=== PATIENT | male | born 1935 | race Caucasian/White ===

== ENCOUNTER 2016-08-26 05:34 | Inpatient (IN) | payer BC ==
--- NOTE | ~2016-08-26 | OP ---
Record Of Operation [facility] [address] [place]. [address] NAME: BEENA NOVA : 34 STATUS : ADM IN PAT#: [id number] AGE: 80 ADM/REG DATE : 08/26/16 MR#: [id number] REPORT SERV DATE: 08/26/16 DICTATED BY: BALDEMAR ORTIZ DATE: 08/26/16 REPORT STATUS : Draft TRANSCRIBED BY: MODL DATE: 08/26/16 DATE OF PROCEDURE: 08/26/2016 CAREER TRANSITION SPECIALIST: Jl Salgado. ANESTHESIOLOGIST: Dr. Hieu Wei. PREOPERATIVE DIAGNOSES: 1. Three-vessel coronary artery disease. 2. Unstable angina. 3. Paroxysmal atrial fibrillation. 4. Bradycardia. 5. Hypertension. 6. BPH. 7. Carotid stenosis. 8. Chronic kidney disease, 3. POSTOPERATIVE DIAGNOSES: 1. Three-vessel coronary artery disease. 2. Unstable angina. 3. Paroxysmal atrial fibrillation. 4. Bradycardia. 5. Hypertension. 6. BPH. 7. Carotid stenosis. 8. Chronic kidney disease, 3. OPERATION PROCEDURE PERFORMED: 1. Median sternotomy. 2. Extracorporeal circulation. 3. Elective coronary artery bypass grafting x4, left internal mammary artery, left anterior descending, reverse greater saphenous vein graft to diagonal 1, reverse greater saphenous vein graft to obtuse marginal #1, reverse greater saphenous vein graft to posterior descending artery. 4. Left atrial appendage clip, 40 mm atrial clip. 5. Transesophageal echocardiogram. 6. Endoscopic vein harvest, right leg. COMPLICATIONS: None. TUBES AND DRAINS: A 24-Kosovan Titi to the left pleural space, 32 straight mediastinal atrial and ventricular wires. Transesophageal echo showed normal EF, trace MR, no AI, no , no clot in the left atrial appendage. Post bypass, it was preserved function, no change in the MR. Record Of Operation [facility] [address] [place]. [address] NAME: BEENA NOVA : 34 STATUS : ADM IN PAT#: [id number] AGE: 80 ADM/REG DATE : 08/26/16 MR#: [id number] REPORT SERV DATE: 08/26/16 DICTATED BY: BALDEMAR ORTIZ DATE: 08/26/16 REPORT STATUS : Draft TRANSCRIBED BY: MODL DATE: 08/26/16 POSTOPERATIVE CONDITION: Stable to CVICU. DETAILS OF CARDIOPULMONARY BYPASS: The cross-clamp was on 84 minutes, total pump was 100 minutes. DETAILS OF CARDIOPULMONARY BYPASS GRAFTIN. Grafts #1, left internal mammary artery, left anterior descending was 1.5 mm diffusely diseased target. 2. Graft was a reverse greater saphenous vein graft to first diagonal. This was 1.25 mm target. This was small diffusely diseased artery. 3. Reverse greater saphenous vein graft to obtuse marginal #1 is a 1.5 mm target. 4. Graft was reverse greater saphenous vein graft to posterior descending artery. This was a 1.75 mm target. DETAILS OF THE LEFT ATRIAL APPENDAGE CLIP: A 40 mm atrial clip was applied to the base of the left atrial appendage after sizing with the atrial clip sizing device. OVERALL FINDINGS: Good targets, good ventricle, good conduit. All grafts had excellent Doppler flow, both pre and post protamine. INDICATIONS FOR PROCEDURE: Mr. Nova is an 80-year-old gentleman with a history of hypertension; BPH; carotid stenosis; chronic kidney disease, stage 3; three-vessel coronary disease; unstable angina; paroxysmal atrial fibrillation; and bradycardia, who had been having chest tightness and shortness of breath and ultimately underwent coronary catheterization, which revealed severe three-vessel coronary artery disease. He was referred for coronary artery bypass grafting. The risks, benefits, alternatives, including, but not limited to, bleeding, infection, stroke, , heart attack, need for future operations, kidney failure, and lung failure were discussed with him. All questions were answered. STS mortality score is 2.5%, morbidity-mortality score 15% were discussed with the patient. It was decided to only perform an atrial clip instead of performing a Maze given his history of severe bradycardia. He was taken to the operating room. DETAILS OF THE PROCEDURE: The patient was brought to the operating room and placed supine on the operating room table. After satisfactory induction of general endotracheal anesthesia, he was prepped and draped in the usual sterile fashion. Working simultaneously, endoscopic vein harvest was performed from the left leg while a median sternotomy was performed. Skin subcutaneous tissues were divided. Clavipectoral fascia was divided. Sternum was divided in the midline. Sternal retractor was placed. Thymic tissue was divided in the midline. Pericardium was opened in the midline and T'd at the diaphragm. A Rultract retractor was then placed and the internal mammary artery was harvested in a pedicle fashion. It was takeoff under the subclavian vein the bifurcation of the diaphragm. Systemic heparinization was achieved. After 3 minutes, the pedicle was clipped and divided. The bifurcation of the diaphragm was infiltrated with papaverine. The Rultract retractor was removed and the sternal retractor was placed. Pericardial well was created. Ascending aortic cannulation was achieved through pursestring at the base of the innominate artery. Dual stage venous cannula was placed through pursestring in the right atrial appendage. Antegrade root vent cardioplegia tack was placed, and the conduit was brought up and prepared for bypass. The Record Of Operation [facility] [address] [facility] [place]. [address] NAME: BEENA NOVA : 34 STATUS : ADM IN [facility]#: [id number] AGE: 80 ADM/REG DATE : 08/26/16 MR#: [id number] REPORT SERV DATE: 08/26/16 DICTATED BY: BALDEMAR ORTIZ DATE: 08/26/16 REPORT STATUS : Draft TRANSCRIBED BY: SHASTA DATE: 08/26/16 internal mammary artery was brought through a wide V in the pericardium. After documentation of an adequate ACT, the cardiopulmonary bypass was initiated. The targets were inspected and were felt to be appropriate for bypass. Left atrial appendage was sized to a 40 mm clip. The cross-clamp was then brought up and the heart was arrested with cold antegrade cardioplegia switching intermittent aliquots of cold antegrade cardioplegia every 15 to 20 minutes throughout the remainder of the cross clamp. The grafts were then performed as mentioned in the findings. All distal anastomoses were probed performed with 8 0 Surgipro. The proximals for the vein grafts were performed after sizing the vein, cutting to length, spatulating. A proximal aortotomy was performed with 11 blade and enlarged with a 5.2 mm punch. All proximals were performed with 6-0 Prolene. Vein markers were placed. Internal mammary artery was brought down through a wide V in the pericardium. Then anastomosed to the anterior surface of the LAD using 8-0 Surgipro. After completion of the anastomosis, there was excellent flow in the graft in the artery distal to the anastomosis and proximal to the anastomosis. The pedicle was attached to the heart in two places using 6-0 Prolene. The left atrial appendage clip was then performed using the 40 mm atrial clip at the base of the appendage. The cross-clamp was then removed. Atrial and ventricular pacing wires were placed. The patient was able to be weaned from cardiopulmonary bypass without incident on no inotropic support. Protamine was administered. The patient was decannulated. All cannulation sites were oversewn with 4-0 Prolene. Hemostasis was obtained. The pericardium was loosely reapproximated over the ascending aorta and the right ventricle using 2-0 silk. The 32-Kosovan chest tube was placed beneath the sternum and 24- Kosovan Titi was placed in the left pleural space, both these were exteriorized and secured. The sternum was then reapproximated using stainless steel sternal wires, some of these were double wires. Clavipectoral fascia was reapproximated using running #1 StrataFix. The subcutaneous tissues were closed using running #1 StrataFix. The skin was closed using 2-0 Quill. The dry sterile dressings were placed and the patient was transferred to CVICU in critical, stable condition. [facility] Baldemar Ortiz MD / [id number] CC: Baldemar Ortiz MD
[~2016-08-26 05:34] MED LIST: APIXABAN PO; ASAB PO; BACDS PO; CHLO TUSS PO; COREG3 PO; DENIES HOME MEDS; ELIQUIS 2.5 MG2.5 MG PO; ELIQUIS 5 MG TAB5 MG PO; LIPITOR20 PO; LIPITOR40 PO; LOP25 PO; MULTIPLE VIT PO; NORV25 PO; PCET PO; SINGULAIR1 PO
[2016-08-26 12:53] LABS: BE (BASE EXCESS) 0.4 MEQ/L (0 +/- 2.5); CARBOXYHEMOGLOBIN 0.3 % (0-3); HCO3 (ACTUAL BICARBONATE) 23.6 MEQ/L (23-27); HEMOBLOGIN CONTENT 12.7 G/DL (14-18); INSTRUMENT SERIAL # 11843; METHEMOGLOBIN 0.5 % (0-3); MODE SIMV; O2 CONTENT 18.4 VOL% (18-24); OPERATOR ID 19104; PCO2 (CO2 TENSION) 34 MMHG (35-45); PO2 (O2 TENSION) 364 MMHG (79-93); SAMPLE Arterial; TIDAL VOLUME 700 ML; pH 7.47 (7.37-7.43)
[2016-08-26 13:13] LABS: HEMOGLOBIN 12.3 g/dL (13.6-17.8)
[2016-08-26 13:14] LABS: HEMATOCRIT 34.9 % (40.0-51.0); PLATELET COUNT 107 10/3/uL (150-400)
[2016-08-26 13:20] LABS: INTERNATIONAL NORMAL RATI 1.6 UNITS (-)
[2016-08-26 13:21] LABS: FIBRINOGEN 245 MG/DL (230-462); PARTIAL THROMBO TIME 33.9 SEC (22.5-37.2); PROTIME (NOT ORD) 18.9 SEC (12.0-14.5)
[2016-08-26 13:28] LABS: BUN (BLOOD UREA NITROGEN) 19 MG/DL (6-23); CALCIUM, SERUM 8.8 MG/DL (8.5-10.4); CHLORIDE, SERUM 110 MMOL/L (96-112); CO2 (CARBON DIOXIDE) 24 MMOL/L (24-34); CREATININE 1.31 MG/DL (0.70-1.30); GFR AFRICAN AMERICAN 59 ML/MIN (>=60); GFR NON AFRICAN AMERICAN 51 ML/MIN (>=60); POTASSIUM, SERUM 3.7 MMOL/L (3.5-5.3); SODIUM, SERUM 144 MMOL/L (135-148)
[2016-08-26 13:30] LABS: GLUCOSE, SERUM 77 MG/DL (60-99)
[2016-08-26 17:49] LABS: BE (BASE EXCESS) -2.6 MEQ/L (0 +/- 2.5); CARBOXYHEMOGLOBIN 0.3 % (0-3); HCO3 (ACTUAL BICARBONATE) 22.6 MEQ/L (23-27); HEMOBLOGIN CONTENT 12.1 G/DL (14-18); INSTRUMENT SERIAL # 11843; METHEMOGLOBIN 0.3 % (0-3); O2 CONTENT 16.7 VOL% (18-24); PCO2 (CO2 TENSION) 40 MMHG (35-45); PO2 (O2 TENSION) 112 MMHG (79-93); pH 7.37 (7.37-7.43)
[2016-08-26 17:50] LABS: DEVICE NC; OPERATOR ID 13715; SAMPLE Arterial
[2016-08-26 20:09] LABS: HEMATOCRIT 31.8 % (40.0-51.0); HEMOGLOBIN 10.9 g/dL (13.6-17.8)
[2016-08-26 20:18] LABS: POTASSIUM, SERUM 4.7 MMOL/L (3.5-5.3)
[2016-08-27 03:40] LABS: BASOPHILS 0 %; EOSINOPHILS 0 %; HEMATOCRIT 29.8 % (40.0-51.0); HEMOGLOBIN 10.2 g/dL (13.6-17.8); IMMATURE GRANULOCYTES 0.4 %; IMMATURE GRANULOCYTES ABSOLUTE 0.05 10/3/uL (0.0-0.11); LYMPHOCYTES 4.1 %; LYMPHOCYTES ABSOLUTE 0.54 10/3/uL (0.67-4.30); MANUAL DIFF NO %; MEAN CORPUS HGB CONC 34.2 g/dL (32.0-36.0); MEAN CORPUSCULAR HEMOGLOB 30.8 pg (26.0-34.0); MEAN PLATELET VOLUME 9.8 fL (9.2-13.0); MONOCYTES 4.8 %; MONOCYTES ABSOLUTE 0.63 10/3/uL (0.21-1.20); NEUTROPHILS 90.7 %; NEUTROPHILS ABSOLUTE 11.96 10/3/uL (2.02-8.40); PLATELET COUNT 107 10/3/uL (150-400); RBC DISTRIBUTION WIDTH 13.7 % (12.0-16.0); RED CELL COUNT 3.31 10/6/uL (4.7-6.1); WHITE BLOOD CELLS 13.2 10/3/uL (4.5-10.5)
[2016-08-27 03:45] LABS: INTERNATIONAL NORMAL RATI 1.4 UNITS (-); PROTIME (NOT ORD) 16.7 SEC (12.0-14.5)
[2016-08-27 04:03] LABS: CALCIUM, SERUM 7.9 MG/DL (8.5-10.4); CHLORIDE, SERUM 113 MMOL/L (96-112); CO2 (CARBON DIOXIDE) 24 MMOL/L (24-34); CREATININE 1.11 MG/DL (0.70-1.30); GFR AFRICAN AMERICAN 72 ML/MIN (>=60); GFR NON AFRICAN AMERICAN 62 ML/MIN (>=60); POTASSIUM, SERUM 4.6 MMOL/L (3.5-5.3); SODIUM, SERUM 145 MMOL/L (135-148)
[2016-08-27 04:07] LABS: BUN (BLOOD UREA NITROGEN) 23 MG/DL (6-23); GLUCOSE, SERUM 87 MG/DL (60-99)
[2016-08-27 15:50] LABS: HEMATOCRIT 31.7 % (40.0-51.0); HEMOGLOBIN 10.8 g/dL (13.6-17.8)
[2016-08-27 16:00] LABS: POTASSIUM, SERUM 5.5 MMOL/L (3.5-5.3)
[2016-08-27 16:51] LABS: POTASSIUM, SERUM 5.1 MMOL/L (3.5-5.3)
[2016-08-28 03:22] LABS: BASOPHILS 0 %; EOSINOPHILS 0 %; HEMATOCRIT 30.2 % (40.0-51.0); HEMOGLOBIN 10.3 g/dL (13.6-17.8); IMMATURE GRANULOCYTES 0.3 %; IMMATURE GRANULOCYTES ABSOLUTE 0.05 10/3/uL (0.0-0.11); LYMPHOCYTES 4.6 %; LYMPHOCYTES ABSOLUTE 0.79 10/3/uL (0.67-4.30); MANUAL DIFF NO %; MEAN CORPUS HGB CONC 34.1 g/dL (32.0-36.0); MEAN CORPUSCULAR HEMOGLOB 30.7 pg (26.0-34.0); MEAN CORPUSCULAR VOLUME 90.1 fL (80-100); MEAN PLATELET VOLUME 10.4 fL (9.2-13.0); MONOCYTES 9.7 %; MONOCYTES ABSOLUTE 1.65 10/3/uL (0.21-1.20); NEUTROPHILS 85.4 %; NEUTROPHILS ABSOLUTE 14.57 10/3/uL (2.02-8.40); PLATELET COUNT 116 10/3/uL (150-400); RBC DISTRIBUTION WIDTH 14.3 % (12.0-16.0); RED CELL COUNT 3.35 10/6/uL (4.7-6.1); WHITE BLOOD CELLS 17.1 10/3/uL (4.5-10.5)
[2016-08-28 03:23] LABS: CALCIUM, SERUM 8.1 MG/DL (8.5-10.4); CHLORIDE, SERUM 108 MMOL/L (96-112); CO2 (CARBON DIOXIDE) 22 MMOL/L (24-34); CREATININE 1.25 MG/DL (0.70-1.30); GFR AFRICAN AMERICAN 62 ML/MIN (>=60); GFR NON AFRICAN AMERICAN 54 ML/MIN (>=60); POTASSIUM, SERUM 5.4 MMOL/L (3.5-5.3); SODIUM, SERUM 142 MMOL/L (135-148)
[2016-08-28 03:24] LABS: BUN (BLOOD UREA NITROGEN) 33 MG/DL (6-23); GLUCOSE, SERUM 154 MG/DL (60-99)
[2016-08-29 08:14] LABS: BASOPHILS 0.1 %; BASOPHILS ABSOLUTE 0.01 10/3/uL (0.0-0.16); EOSINOPHILS 0 %; IMMATURE GRANULOCYTES 0.4 %; IMMATURE GRANULOCYTES ABSOLUTE 0.05 10/3/uL (0.0-0.11); LYMPHOCYTES 7.3 %; MEAN CORPUS HGB CONC 34.5 g/dL (32.0-36.0); MEAN CORPUSCULAR HEMOGLOB 30.9 pg (26.0-34.0); MEAN CORPUSCULAR VOLUME 89.5 fL (80-100); MEAN PLATELET VOLUME 10.5 fL (9.2-13.0); MONOCYTES 15.9 %; MONOCYTES ABSOLUTE 2.18 10/3/uL (0.21-1.20); NEUTROPHILS 76.3 %; NEUTROPHILS ABSOLUTE 10.47 10/3/uL (2.02-8.40); PLATELET COUNT 141 10/3/uL (150-400); RBC DISTRIBUTION WIDTH 13.9 % (12.0-16.0); WHITE BLOOD CELLS 13.7 10/3/uL (4.5-10.5)
[2016-08-29 08:15] LABS: HEMATOCRIT 37.4 % (40.0-51.0); HEMOGLOBIN 12.9 g/dL (13.6-17.8); MANUAL DIFF NO %; RED CELL COUNT 4.18 10/6/uL (4.7-6.1)
[2016-08-29 08:23] LABS: BUN (BLOOD UREA NITROGEN) 33 MG/DL (6-23); CALCIUM, SERUM 8.7 MG/DL (8.5-10.4); CHLORIDE, SERUM 103 MMOL/L (96-112); CO2 (CARBON DIOXIDE) 24 MMOL/L (24-34); CREATININE 1.28 MG/DL (0.70-1.30); GFR AFRICAN AMERICAN 60 ML/MIN (>=60); GFR NON AFRICAN AMERICAN 52 ML/MIN (>=60); GLUCOSE, SERUM 156 MG/DL (60-99); POTASSIUM, SERUM 4.2 MMOL/L (3.5-5.3); SODIUM, SERUM 137 MMOL/L (135-148)
[2016-08-30 07:27] LABS: BASOPHILS 0 %; EOSINOPHILS 0.3 %; EOSINOPHILS ABSOLUTE 0.03 10/3/uL (0.0-0.53); IMMATURE GRANULOCYTES 0.2 %; IMMATURE GRANULOCYTES ABSOLUTE 0.02 10/3/uL (0.0-0.11); LYMPHOCYTES 12.1 %; MEAN CORPUS HGB CONC 35.3 g/dL (32.0-36.0); MEAN CORPUSCULAR HEMOGLOB 30.8 pg (26.0-34.0); MEAN CORPUSCULAR VOLUME 87.4 fL (80-100); MONOCYTES 13.2 %; MONOCYTES ABSOLUTE 1.31 10/3/uL (0.21-1.20); NEUTROPHILS 74.2 %; NEUTROPHILS ABSOLUTE 7.37 10/3/uL (2.02-8.40); PLATELET COUNT 119 10/3/uL (150-400); RBC DISTRIBUTION WIDTH 14.1 % (12.0-16.0); RED CELL COUNT 3.57 10/6/uL (4.7-6.1); WHITE BLOOD CELLS 9.9 10/3/uL (4.5-10.5)
[2016-08-30 07:28] LABS: HEMATOCRIT 31.2 % (40.0-51.0); MANUAL DIFF NO %
[2016-08-30 07:37] LABS: BUN (BLOOD UREA NITROGEN) 36 MG/DL (6-23); CALCIUM, SERUM 7.9 MG/DL (8.5-10.4); CHLORIDE, SERUM 103 MMOL/L (96-112); CO2 (CARBON DIOXIDE) 26 MMOL/L (24-34); GFR AFRICAN AMERICAN 59 ML/MIN (>=60); GFR NON AFRICAN AMERICAN 51 ML/MIN (>=60); GLUCOSE, SERUM 113 MG/DL (60-99); SODIUM, SERUM 141 MMOL/L (135-148)
[2016-08-30] MEDS ORDERED: ULTRAM50 PO (11:36)
[2016-08-30] MEDS ORDERED: PRIN5 PO (11:36)
[2016-08-30] MEDS ORDERED: P5 PO (11:37)
[2017-02-17] MEDS ORDERED: VITAMIN B12 PO (21:11)
[2017-02-20] MEDS ORDERED: DURICEF PO (12:37)
== END 2016-08-30 13:28 | disposition home or self-care (01) | DRG 236 ==
LOC: SDC/OF 05:34 → CVICU 11:21 → 5NO 08-28 18:21
PROVIDERS: Anesthesiology; Nurse Practitioner Family; Thoracic Surgery (Cardiothoracic Vascular Surgery)
PROC: 5A1221Z Performance of Cardiac Output, Continuous (ICD-10-PCS; 2016-08-26)
PROC: 02L70CK Occlusion of Left Atrial Appendage with Extraluminal Device, Open Approach (ICD-10-PCS; 2016-08-26)
PROC: B246ZZ4 Ultrasonography of Right and Left Heart, Transesophageal (ICD-10-PCS; 2016-08-26)
PROC: 02100Z9 Bypass Coronary Artery, One Artery from Left Internal Mammary, Open Approach (ICD-10-PCS; principal; 2016-08-26 07:30)
PROC: 021209W Bypass Coronary Artery, Three Arteries from Aorta with Autologous Venous Tissue, Open Approach (ICD-10-PCS; 2016-08-26 07:30)
PROC: 06BP3ZZ Excision of Right Saphenous Vein, Percutaneous Approach (ICD-10-PCS; 2016-08-26 07:30)
DX: I25.110 Atherosclerotic heart disease of native coronary artery with unstable angina pectoris (principal); I48.0 Paroxysmal atrial fibrillation; N18.3 Chronic kidney disease, stage 3 (moderate); I12.9 Hypertensive chronic kidney disease with stage 1 through stage 4 chronic kidney disease, or unspecified chronic kidney disease; N40.0 Benign prostatic hyperplasia without lower urinary tract symptoms; I65.29 Occlusion and stenosis of unspecified carotid artery; E78.5 Hyperlipidemia, unspecified
CPT/HCPCS: 36415; 71010; 71020; 80048; 82330; 82803; 82805; 82947; 82962; 83735; 84132; 84295; 85014; 85018; 85025; 85049; 85347; 85384; 85610; 85730; 86850; 86900; 86901; 86920; 93005; 93312; 93320; 93325; 94002; 94640; 94660; 94770; A9270-GY; C1713; C1769; C1776; C1894; G0463; J0690; J1644; J2150; J2250; J2370; J2405; J2440; J2720; J2930; J3010; J3370; J3475; J3480; P9045; P9047